=== PATIENT | female | born 1985 | race Caucasian/White ===

== ENCOUNTER 2017-10-25 12:09 | Emergency (ER) | payer SELFPAY ==
[2017-10-25 12:26] VITALS: BP 147/82; PULSE 90; RESP 16; TEMP 99; O2SAT 98
[2017-10-25] MEDS ORDERED: BACT800T5 PO (14:14)
--- NOTE | 2017-10-25 14:22 | PD ---
HPI . Abscess Chief Complaint: Skin Problem Time Seen by Provider: 14:13 Travel History International Travel<30 days: No Contact w/Intl Traveler<30days: No Traveled to known affect area: No History of Present Illness HPI Patient presents with the chief complaint of 2 abscesses. She has one in the left axilla which has been there for about 1.5 weeks and one on her left breast which is been there for about a week. The one in the left axilla has started to drain. She has had no fever. She has been treating them at home with a topical antibiotic. She rates the pain as 6-8/10. [facility] Social History Tobacco Use: No Allergies-Medications (Allergen,Severity, Reaction): Coded Allergies: No Known Allergies (Unverified , 10/25/17) Reported Meds & Prescriptions Reported Meds & Active Scripts Active Bactrim DS (Sulfamethoxazole-Trimethoprim) 800-160 Mg Tab 1 Tab PO BID Review of Systems Except as stated in HPI: all other systems reviewed are Neg Skin: Positive Lesions Physical Exam Narrative GENERAL: Awake and alert and in no acute distress. SKIN: Warm and dry. She has an abscess in the left axilla which is draining but has not completely drained yet. She has a second abscess on the left upper breast. The one on her breast is located in a fresh tattoo. Both abscesses are fluctuant. The overlying skin is not red or hot. HEAD: Normocephalic/atraumatic. EYES: Pupils are equal. Extraocular movements are intact. NECK: Normal range of motion. CARDIOVASCULAR: Regular rate and rhythm. RESPIRATORY: Nonlabored respirations. MUSCULOSKELETAL: Atraumatic. NEUROLOGICAL: Nonfocal. PSYCHIATRIC: Appropriate mood and affect. Data Data Last Documented VS Vital Signs Date Time Temp Pulse Resp B/P (MAP) Pulse Ox O2 Delivery O2 Flow Rate FiO2 10/25/17 12:26 99.0 90 16 147/82 (103) 98 Orders Orders Ed Discharge Order (10/25/17 14:15) [facility] Medical Decision Making Medical Screen Exam Complete: Yes Emergency Medical Condition: Yes Differential Diagnosis My differential diagnosis closed but is not limited to abscess, cyst, lipoma Narrative Course Patient presents with 2 abscesses. I have now both been drained. She will be discharged with a prescription for Bactrim. She has been instructed in local care. Procedures Procedure Narrative INCISION AND DRAINAGE OF ABSCESS: The left axilla was prepped. A subcutaneous wheal of 1 % Xylocaine with epi with a total number 4 mL was used to anesthetize the area properly. A number 11 scalpel was used to make a 1 -cm incision across the area of the abscess. The abscess was drained and irrigated with normal saline. Sterile dressing applied. INCISION AND DRAINAGE OF ABSCESS: The left chest was prepped. A subcutaneous wheal of 1 % Xylocaine with epi with a total number 4 mL was used to anesthetize the area properly. A number 11 scalpel was used to make a 1 -cm incision across the area of the abscess. The abscess was drained and irrigated with normal saline. Sterile dressing applied. Both abscesses were superficial. Therefore, no packing was used. Diagnosis Primary Impression: Abscess Patient Instructions: General Instructions Departure Forms: Tests/Procedures Scripts Sulfamethoxazole-Trimethoprim (Bactrim DS) 800-160 Mg Tab 1 TAB PO BID for Infection, #20 TAB 0 Refills Prov: Mita Laguerre MD 10/25/17 Disposition: 01 DISCHARGE HOME Condition: Stable Mita Laguerre MD Oct 25, 2017 14:22
== END 2017-10-25 14:38 | disposition home or self-care (01) ==
LOC: NEPD 12:09
DX: L02.412 Cutaneous abscess of left axilla (principal)
CPT/HCPCS: 10061

== ENCOUNTER 2017-11-20 16:58 | Emergency (ER) | payer MEDICAID ==
[~2017-11-20] VITALS: Ht 167.6 cm; Wt 72.7 kg
[~2017-11-20 16:58] MED LIST: BACT800T5 PO
[2017-11-20 17:17] VITALS: BP 129/72; PULSE 100; RESP 18; TEMP 98.7; O2SAT 99
[2017-11-20] MEDS ORDERED: CEPH-460 PO (17:52)
[2017-11-20] MEDS ORDERED: BACT800T5 PO (17:52)
--- NOTE | 2017-11-20 17:56 | PD ---
HPI Chief Complaint: Skin Problem Time Seen by Provider: 17:43 Travel History International Travel<30 days: No Contact w/Intl Traveler<30days: No Traveled to known affect area: No History of Present Illness HPI Patient comes to the emergency department complaining of recurrent skin infection that began 4-5 days ago. Patient states she had similar lesion last month and had to be drained. Patient reports she was put on antibiotics which she finished and lesion resolved. Patient reports area is irritated by her bra she thinks this may be causing the recurrent infection. Patient describes pain as it just hurts without radiation. Pain is worse to palpation. Patient's been trying to use a drawing salve with no improvement of symptoms. Patient is taking Aleve for pain control. Patient reports a history of MRSA. Denies fevers or . PFSH Past Medical History Medical History: Denies Significant Hx ?: Not LMP: 11/18/17 Social History Alcohol Use: No Tobacco Use: Yes Substance Use: No Allergies-Medications (Allergen,Severity, Reaction): Coded Allergies: No Known Allergies (Unverified , 11/20/17) Reported Meds & Prescriptions Reported Meds & Active Scripts Active Keflex (Cephalexin) 500 Mg Cap 500 Mg PO Q8H Bactrim DS (Sulfamethoxazole-Trimethoprim) 800-160 Mg Tab 1 Tab PO BID Review of Systems Except as stated in HPI: all other systems reviewed are Neg Physical Exam Narrative GENERAL: Well-developed, overly nourished, in no acute distress, and non-ill appearing. SKIN: Patient is a small area of cellulitis on the left inferior to the axilla midaxillary line near her bra line. It is indurated without fluctuation or crepitus. There is no drainage. Is mildly tender to palpation. HEAD: Atraumatic. Normocephalic. EYES: Pupils equal and round. EOMI. No scleral icterus. No injection or drainage. ENT: No nasal bleeding or discharge. Mucous membranes pink and moist. NECK: Trachea midline. Supple. No nuclear rigidity. RESPIRATORY: No accessory muscle use. No respiratory distress. MUSCULOSKELETAL: No obvious deformities. No clubbing. No cyanosis. No edema. Full range of motion. NEUROLOGICAL: Awake and alert. No obvious cranial nerve deficits. Motor grossly within normal limits. Normal speech. PSYCHIATRIC: Appropriate mood and affect; insight and judgment normal. Data Data Last Documented VS Vital Signs Date Time Temp Pulse Resp B/P (MAP) Pulse Ox O2 Delivery O2 Flow Rate FiO2 11/20/17 17:17 98.7 100 18 129/72 (91) 99 Orders Orders Ed Discharge Order (11/20/17 17:56) MDM Medical Decision Making Medical Screen Exam Complete: Yes Emergency Medical Condition: Yes Differential Diagnosis Abscess, cellulitis, folliculitis Narrative Course The patient has cellulitis. There is no evidence of necrotizing fasciitis at this time, pain is proportional and no crepitus is noted. There is no evidence of abscess as well at this time. The patient will be discharged on antibiotics. The patient was given signs and symptoms warnings for worsening infection, such as spreading of redness, increasing pain, and/or swelling, associated heat, or fever and instructed to return immediately if these signs or symptoms worsen. The patient is to follow up with physician in 2 days for recheck or return here in 2 days for recheck if unable to establish outpatient follow up. Sooner if worsens or as needed. The patient agrees with plan. Patient in no obvious distress upon re-evaluation. Patient was asked if they wanted to speak to my attending, which the patient did not wish to do at this time. Any questions/concerns in reference to patient diagnosis/condition discussed and clarified prior to patient's discharge. Reinforced sheer importance of close follow up with patient's primary physician or primary care clinic her to return here in 2 days for recheck. Instructed patient to return to ED immediately, if symptoms return/worsen. Patient showed understanding of above instructions. Further instructions and recommendations were detailed in discharge paperwork. Patient ambulated without difficulty out of ED at discharge. Diagnosis Primary Impression: Cellulitis Qualified Codes: L03.818 - Cellulitis of other sites Referrals: [facility] Patient Instructions: Cellulitis (ED), General Instructions Additional Instructions: Follow-up with your primary care physician or return here in 2 days for recheck. Take all medication as prescribed. Return to the emergency department if symptoms get worse. Med/Other Pt SpecificInfo: Prescription(s) given Scripts Cephalexin (Keflex) 500 Mg Cap 500 MG PO Q8H for Infection, #30 CAP 0 Refills Prov: Sherine Pacheco MD 11/20/17 Sulfamethoxazole-Trimethoprim (Bactrim DS) 800-160 Mg Tab 1 TAB PO BID for Infection, #20 TAB 0 Refills Prov: Sherine Pacheco MD 11/20/17 Disposition: 01 DISCHARGE HOME Condition: Stable Zachary Carter November 20, 2017 17:56
== END 2017-11-20 18:10 | disposition home or self-care (01) ==
LOC: NEPK 16:58
DX: L03.818 Cellulitis of other sites (principal); Z72.0 Tobacco use; Z86.14 Personal history of Methicillin resistant Staphylococcus aureus infection
CPT/HCPCS: 99283